=== PATIENT | male | born 1960 | race Caucasian/White ===

== ENCOUNTER 2023-12-28 13:52 | Emergency (ER) | payer BC, OTHER ==
[2023-12-28] MEDS: LIDOCAINE/EPINEPHR/TETRACAINE 5 ML BOTTLE TOPICAL ONE (14:39)
--- NOTE | 2023-12-28 14:39 | ED ---
Fall HPI - General Chief Complaint: Fall Stated Complaint: fall Time Seen by Provider: 12/28/23 13:59 Source: patient, EMS, RN notes reviewed Mode of arrival: EMS Limitations: no limitations - History of Present Illness Initial Comments: 63-year-old male presents emergency department with chief complaint of fall. Patient was checked on by hospice nurse in which patient reported he fell an unknown time. He was noted to have a laceration to his left scapular region patient's reportedly started on hospice yesterday for bladder, liver cancer metastasis. Patient denies any other areas of injury at this time. Denies any chest pain shortness of breath he does have a distended abdomen which is chronic. - Related Data Home Medications Medication Instructions Recorded Confirmed Docusate [Colace] 100 mg PO TID PRN 12/28/23 12/28/23 Esomeprazole Magnesium [NexIUM] 40 mg PO AC-BRKFST 12/28/23 12/28/23 LORazepam [Ativan] 1 mg PO Q8H 12/28/23 12/28/23 Metoclopramide [Reglan] 10 mg PO TID PRN 12/28/23 12/28/23 Sennosides [Senokot] 8.6 mg PO BID PRN 12/28/23 12/28/23 ondansetron HCL [Zofran] 8 mg PO Q8H 12/28/23 12/28/23 oxyCODONE HCL [OxyCONTIN] 40 mg PO Q8H 12/28/23 12/28/23 oxyCODONE HCL [oxyCODONE HCL (IR)] 30 mg PO Q3H PRN 12/28/23 12/28/23 Allergies Allergy/AdvReac Type Severity Reaction Status Date / Time No Known Allergies Allergy Verified 12/28/23 15:50 Review of Systems ROS Statement: Those systems with pertinent positive or pertinent negative responses have been documented in the HPI. ROS Other: All systems not noted in ROS Statement are negative. Past Medical History Additional Past Medical History / Comment(s): CA liver/gullbladder History of Any Multi-Drug Resistant Organisms: Unobtainable Past Surgical History: Unable to Obtain Past Psychological History: Unable to Obtain Smoking Status: Unknown if ever smoked Past Alcohol Use History: Unable to Obtain Past Drug Use History: Unable to Obtain General Exam Limitations: no limitations General appearance: alert, in no apparent distress, cachectic Head exam: Present: atraumatic, normocephalic, normal inspection Eye exam: Present: normal appearance, PERRL, EOMI. Absent: scleral icterus, conjunctival injection, periorbital swelling ENT exam: Present: normal exam, mucous membranes moist Neck exam: Present: normal inspection, full ROM. Absent: tenderness, me ningismus, lymphadenopathy Respiratory exam: Present: normal lung sounds bilaterally. Absent: respiratory distress, wheezes, rales, rhonchi, stridor Cardiovascular Exam: Present: regular rate, normal rhythm, normal heart sounds. Absent: systolic murmur, diastolic murmur, rubs, gallop, clicks GI/Abdominal exam: Present: soft, distended, tenderness, normal bowel sounds. Absent: guarding, rebound, rigid Extremities exam: Present: other (Left posterior scapular region 4 cm irregular laceration) Neurological exam: Present: alert Skin exam: Present: warm, dry, intact, normal color. Absent: rash Course Vital Signs 12/28/23 12/28/23 14:09 15:47 Temperature 98.1 F 97.1 F L Pulse Rate 76 60 Respiratory 20 14 Rate Blood Pressure 101/70 89/60 O2 Sat by Pulse 96 99 Oximetry Procedures - Laceration Laceration #1 Consent Obtained: verbal consent Indication: laceration Site: other (back shoulder) Size (cm): 4 Description: irregular Depth: simple, single layer Anesthetic Used: lidocaine 1%, without epi Pre-repair: wound explored, irrigated extensively Type of Sutures: other (dermabond) Patient Tolerated Procedure: well, no complications Medical Decision Making - Medical Decision Making Was pt. sent in by a medical professional or institution (, PA, DRUM REEL CUTTER, urgent care, hospital, or residential...) When possible be specific @ -No Did you speak to anyone other than the patient for history (EMS, parent, family, police, friend...)? What history was obtained from this source @ -Hospice regarding current status, findings with the patient upon their evaluation Did you review nursing and triage notes (agree or disagree)? Why? @ -I reviewed and agree with nursing and triage notes Were old charts reviewed (outside hosp., previous admission, EMS record, old EKG, old radiological studies, urgent care reports/EKG's, residential records)? Report findings @ -No old charts were reviewed Differential Diagnosis (chest pain, altered mental status, abdominal pain women, abdominal pain men, vaginal bleeding, weakness, fever, dyspnea, syncope, headache, dizziness, GI bleed, back pain, seizure, CVA, palpatations, mental health, musculoskeletal)? @ -Differential Weakness: Cancer, liver failure, hypoglycemia, shock, sepsis, hyponatremia, anemia, infection, HI, ETOH, adverse medicine reaction, overdose, stroke, this is not meant to be an all-inclusive list. EKG interpreted by me (3pts min.). @ -None X-rays interpreted by me (1pt min.). @ -None done CT interpreted by me (1pt min.). @ -CT brain, C-spine showing no acute intracranial hemorrhage, mass effect, cervical fracture U/S interpreted by me (1pt. min.). @ -None done What testing was considered but not performed or refused? (CT, X-rays, U/S, labs)? Why? @ -Ordered x-rays chest, shoulder patient is DNR and felt not needed at this time What meds were considered but not given or refused? Why? @ -None Did you discuss the management of the patient with other professionals (professionals i.e. , PA, DRUM REEL CUTTER, lab, RT, psych nurse, clinical social work aide, printing plate maker, teacher, control officer manager, lining caser)? Give summary @ -Hospice, sound physician for admission for comfort care Was smoking cessation discussed for >3mins.? @ -No Was critical care preformed (if so, how long)? @ -No Were there social determinants of health that impacted care today? How? (Homelessness, low income, unemployed, alcoholism, drug addiction, transportation, low edu. Level, literacy, decrease access to med. care, [facility], rehab)? @ -No Was there de-escalation of care discussed even if they declined (Discuss DNR or withdrawal of care, Hospice)? DNR status @ -No What co-morbidities impacted this encounter? (DM, HTN, Smoking, COPD, CAD, Cancer, CVA, ARF, Chemo, Hep., AIDS, mental health diagnosis, sleep apnea, morbid obesity)? @ -Liver, bladder cancer Was patient admitted / discharged? Hospital course, mention meds given and route, prescriptions, significant lab abnormalities, going to OR and other pertinent info. @ -Admitted for comfort care, GIP, patient has liver, bladder cancer patient recently started on hospice patient has severe hyponatremia, hypochloremia and current liver failure. Patient will admitted for comfort care. Undiagnosed new problem with uncertain prognosis? @ -Yes Drug Therapy requiring intensive monitoring for toxicity (Heparin, Nitro, Insulin, Cardizem)? @ -No Were any procedures done? @ -No Diagnosis/symptom? @ -Hyponatremia, hypochloremia, metastatic cancer Acute, or Chronic, or Acute on Chronic? @ -Acute Uncomplicated (without systemic symptoms) or Complicated (systemic symptoms)? @ -Complicated Side effects of treatment? @ -No Exacerbation, Progression, or Severe Exacerbation? @ -No Poses a threat to life or bodily function? How? (Chest pain, USA, HI, pneumonia, PE, COPD, DKA, ARF, appy, cholecystitis, CVA, Diverticulitis, Homicidal, Suicida l, threat to staff... and all critical care pts) @ -Yes cancer, hyponatremia - Lab Data Result diagrams: 12/28/23 14:33 12/28/23 14:33 Lab Results 12/28/23 12/28/23 12/28/23 Range/Units 14:33 14:33 14:33 WBC 20.8 H (3.8-10.6) k/uL RBC 3.78 L (4.30-5.90) m/uL Hgb 10.4 L (13.0-17.5) gm/dL Hct 30.3 L (39.0-53.0) % MCV 80.2 (80.0-100.0) fL MCH 27.5 (25.0-35.0) pg MCHC 34.3 (31.0-37.0) g/dL RDW 16.3 H (11.5-15.5) % Plt Count 253 (150-450) k/uL MPV 8.3 Neutrophils % (Manual) 92 % Band Neuts % (Manual) 5 % Lymphocytes % (Manual) 1 % Monocytes % (Manual) 2 % Neutrophils # (Manual) 20.10 H (1.3-7.7) k/uL Lymphocytes # (Manual) 0.21 L (1.0-4.8) k/uL Monocytes # (Manual) 0.42 (0-1.0) k/uL Nucleated RBCs 0 (0-0) /100 WBC Manual Slide Review Performed Anisocytosis Slight PT 13.7 H (10.0-12.5) sec INR 1.3 H (<1.2) APTT 25.0 (22.0-30.0) sec Sodium 106 L* (137-145) mmol/L Potassium 4.1 (3.5-5.1) mmol/L Chloride 65 L* (98-107) mmol/L Carbon Dioxide 32 H (22-30) mmol/L Anion Gap 9 mmol/L BUN 44 H (9-20) mg/dL Creatinine 2.06 H (0.66-1.25) mg/dL Est GFR (CKD-EPI)AfAm 39 (>60 ml/min/1.73 sqM) Est GFR (CKD-EPI)NonAf 34 (>60 ml/min/1.73 sqM) Glucose 70 L (74-99) mg/dL Calcium 9.7 (8.4-10.2) mg/dL Magnesium 4.1 H (1.6-2.3) mg/dL Total Bilirubin 1.0 (0.2-1.3) mg/dL AST 708 H (17-59) U/L ALT 146 H (4-49) U/L Alkaline Phosphatase 908 H (38-126) U/L Ammonia (<30) umol/L Total Protein 6.0 L (6.3-8.2) g/dL Albumin 2.9 L (3.5-5.0) g/dL 12/27/ Range/Units 14:33 WBC (3.8-10.6) k/uL RBC (4.30-5.90) m/uL Hgb (13.0-17.5) gm/dL Hct (39.0-53.0) % MCV (80.0-100.0) fL MCH (25.0-35.0) pg MCHC (31.0-37.0) g/dL RDW (11.5-15.5) % Plt Count (150-450) k/uL MPV Neutrophils % (Manual) % Band Neuts % (Manual) % Lymphocytes % (Manual) % Monocytes % (Manual) % Neutrophils # (Manual) (1.3-7.7) k/uL Lymphocytes # (Manual) (1.0-4.8) k/uL Monocytes # (Manual) (0-1.0) k/uL Nucleated RBCs (0-0) /100 WBC Manual Slide Review Anisocytosis PT (10.0-12.5) sec INR (<1.2) APTT (22.0-30.0) sec Sodium (137-145) mmol/L Potassium (3.5-5.1) mmol/L Chloride (98-107) mmol/L Carbon Dioxide (22-30) mmol/L Anion Gap mmol/L BUN (9-20) mg/dL Creatinine (0.66-1.25) mg/dL Est GFR (CKD-EPI)AfAm (>60 ml/min/1.73 sqM) Est GFR (CKD-EPI)NonAf (>60 ml/min/1.73 sqM) Glucose (74-99) mg/dL Calcium (8.4-10.2) mg/dL Magnesium (1.6-2.3) mg/dL Total Bilirubin (0.2-1.3) mg/dL AST (17-59) U/L ALT (4-49) U/L Alkaline Phosphatase (38-126) U/L Ammonia 17 (<30) umol/L Total Protein (6.3-8.2) g/dL Albumin (3.5-5.0) g/dL Disposition Clinical Impression: Fall, Laceration of back, Bladder cancer, Liver cancer, Hyponatremia Disposition: ADMITTED IP TO THIS [facility] Condition: Critical Referrals: None,Stated [Primary Care Provider] - 1-2 days Time of Disposition: 15:43
[2023-12-28 14:52] LABS: Anisocytosis Slight; HCT 30.3 % (39.0-53.0); HGB 10.4 gm/dL (13.0-17.5); MCH 27.5 pg (25.0-35.0); MCHC 34.3 g/dL (31.0-37.0); MCV 80.2 fL (80.0-100.0); Mean Platelet Volume 8.3; Platelet Count 253 k/uL (150-450); RBC 3.78 m/uL (4.30-5.90); RDW 16.3 % (11.5-15.5); WBC 20.8 k/uL (3.8-10.6)
[2023-12-28 15:04] LABS: INR 1.3 (<1.2); Prothrombin Time 13.7 sec (10.0-12.5)
[2023-12-28 15:11] LABS: ALT 146 U/L (4-49); AST 708 U/L (17-59); Albumin 2.9 g/dL (3.5-5.0); Alkaline Phosphatase 908 U/L (38-126); Anion Gap 9 mmol/L; Blood Urea Nitrogen 44 mg/dL (9-20); Calcium 9.7 mg/dL (8.4-10.2); Carbon Dioxide 32 mmol/L (22-30); Glucose 70 mg/dL (74-99); Magnesium 4.1 mg/dL (1.6-2.3); Potassium 4.1 mmol/L (3.5-5.1)
[2023-12-28 15:17] LABS: African American GFR (CKD) 39 (>60 ml/min/1.73 sqM); Non-African American GFR(CKD) 34 (>60 ml/min/1.73 sqM)
[2023-12-28 15:19] LABS: Chloride 65 mmol/L (98-107); Sodium 106 mmol/L (137-145)
[2023-12-28] MEDS: SODIUM CHLORIDE 0.9% 1,000 ML IV SCH (15:41)
--- NOTE | 2023-12-28 15:41 | CT ---
EXAMINATION TYPE: CT brain cspine wo con CT DLP: 1329.3 mGycm, Automated exposure control for dose reduction was used. DATE OF EXAM: 12/28/2023 3:18 PM COMPARISON: None.. CLINICAL INDICATION:Male, 63 years old with history of AMS/fall; AMS, fall, +LOC TECHNIQUE: Brain: Multiple axial CT images of the brain were obtained without IV contrast. Cspine: Axial CT images from the skull base to the inferior aspect of T2 we obtained without intraven ous contrast. Coronal and sagittal reformatted images were also reviewed. FINDINGS: Brain: Extra-axial spaces: No abnormal extra-axial fluid collections. Ventricular system: Within normal limits Cerebral parenchyma: No acute intraparenchymal hemorrhage or mass effect. The roman-white junction is well differentiated. Cerebellum: Unremarkable. Mass effect: No evidence of midline shift. Intracranial vasculature: unremarkable Soft tissues: Minimal left posterior scalp contusion. Calvarium/osseous structures: No depressed skull fracture. Remote fractures of the bilateral lamina p apyracea Paranasal sinuses and mastoid air cells: Mastoid air cells are clear. Minimal mucosal thickening of t he left maxillary and sinus postsurgical changes along the medial wall. Chronic sinusitis changes of the left maxillary sinus. Visualized orbits: Orbital contents are intact. Cervical spine: Fracture: None. Osseous structures: Unremarkable Vertebral alignment: Within normal limits. Spinal canal/Neural Foramina: No evidence of significant spinal canal narrowing. No evidence for sign ificant neural foraminal stenosis. Neck soft tissues: Prevertebral soft tissues are within normal limits. Diffuse anasarca. Other: The airway is patent. The lung apices are clear. Left chest Mediport catheter. Dilated fluid-f illed visualized esophagus. IMPRESSION: 1. No acute intracranial process. 2. No evidence of cervical spine fracture. 3. Minimal left posterior scalp contusion. 4. Diffuse anasarca. 5. Dilated fluid-filled visualized esophagus. Consider further evaluation with esophagram. [facility], , 12/28/2023 3:39 PM
[2023-12-28] MEDS ORDERED: MORPHINE SULFATE 4 MG/ML SYRINGE IV PRN (15:44)
[2023-12-28] MEDS ORDERED: NALOXONE 0.4 MG/ML 1 ML VIAL IV PRN (15:44)
[2023-12-28] MEDS ORDERED: ONDANSETRON 4 MG/2 ML VIAL IVP PRN (15:44)
[2023-12-28 15:48] VITALS: BP 89/60; PULSE 60; RESP 14; TEMP 97.1
[2023-12-28 16:06] LABS: Band Neutrophils % 5 %; Lymphocytes # (M) 0.21 k/uL (1.0-4.8); Monocytes # (M) 0.42 k/uL (0-1.0); Neutrophils % (M) 92 %; Nucleated Red Blood Cells 0 /100 WBC (0-0); Total Cells Counted 100
== END 2023-12-28 16:10 | disposition other institution (70) ==
LOC: EC 13:52 → UNDOADMIN 15:50 → 5NMEDONC 15:50 → EC 16:10
CPT/HCPCS: 36415; 70450; 72125; 80053; 82140; 83735; 85025; 85610; 85730; 99285

== ENCOUNTER 2023-12-28 15:55 | Inpatient (IN) | payer BC, MEDICAID, OTHER ==
[2023-12-28] MEDS ORDERED: LORazepam 0.5 MG TAB PO PRN (16:05)
[2023-12-28] MEDS: MORPHINE SULFATE 2 MG/ML SYRINGE IV PRN (16:27)
--- NOTE | 2023-12-28 16:45 | P.HPIM ---
History of Present Illness H&P Date: 12/28/23 History of Presenting Illness: Patient is a very pleasant 63-year-old male with a past medical history of metastatic liver cancer currently on home hospice. He presented to the emergency department via EMS after he was found on ground by hospice nurse. Chris cook was down on ground for unknown length of time after reports of a fall called EMS for transfer to the hospital for evaluation. On arrival to the emergency department patient was found to have a laceration to left scapular region. Upon arrival to our facility, patient underwent evaluation in the emergency department. Vital signs completed and reviewed. Blood pressure 101/70, heart rate 76, respiratory rate 20, temp 98.1 F, and SpO2 of 96% on room air. CT head was completed negative for acute intracranial process showing minimal left posterior scalp contusion. CT cervical spine negative for cervical spine fracture showing diffuse anasarca and dilated fluid-filled visualized esophagus. Labs completed and reviewed. CBC showing leukocytosis with WBC count of 20.8 and hemoglobin of 10.4. Coagulation profile showing elevated PT of 13.7 and INR of 1.3. BMP showing severe hyponatremia with sodium of 106 and severe metabolic alkalosis with chloride of 65, bicarb of 32, and anion gap of 9 with acute injury with BUN of 44, creatinine of 2.06, and GFR of 34. Blood glucose 70. Magnesium 4.1. Liver profile showing AST of 708, ALT of 146, and alkaline phosphatase of 908. Patient declined all treatment, requesting comfort measures only. Patient reporting pain all over and feeling extremely tired. He was admitted under our services at this time for comfort care. Review of systems: Pertinent positives and negatives as discussed in HPI, a complete review of systems was performed and all other systems are negative. Physical exam: Vital signs reviewed and stable. General: Nontoxic, no distress and appears stated age. Thin, frail cachectic appearance. Derm: Skin warm and dry. Jaundice present. Head: Atraumatic, normocephalic and symmetric. Eyes: EOM's intact, no lid lag, and anicteric sclera Mouth: no lip lesions, mucus membranes moist Cardiovascular: regular rate and rhythm with normal S1S2, no murmur, positive posterior tibial pulses bilaterally, and cap refill < 2 seconds. Lungs: Respirations even, regular, and unlabored on room air. Lungs CTA bilaterally, no rhonchi, no rales, no wheezing, and no accessory muscle usage. Abdominal: Distended cirrhotic abdomen, nontender to palpation, no guarding, no appreciable organomegaly Ext: ROM intact. No gross muscle atrophy, no edema, no contractures Neuro: Speech clear, face symmetrical and CN II-XII grossly intact with no noted focal neuro deficits Psych: Alert and oriented. Lethargic. Assessment and Plan of Care: Metastatic liver cancer Severe hyponatremia Severe metabolic alkalosis Hepatic failure Acute kidney injury Leukocytosis Normocytic anemia -Comfort measures only. -Consult to hospice, discussed case in detail with nurse discharge -Symptomatic care and pain management. -Artificial teardrops to bilateral eyes every 2 hours as needed for dry eyes. -Scopolamine patch. -Order placed for sublingual atropine drops and Robinul for excess secretions. -Compazine 10 mg IVP every 6 hours as needed for nausea and/or vomiting. -OxyContin 40 mg every 8 hours and 30 mg every 3 hours as needed for breakthrough pain. Morphine 4 mg IVP every 4 hours as needed for severe breakthrough pain. -Ativan 1 mg IVP every 4 hours as needed for agitation or acute anxiety. -And reposition patient for comfort/support as needed. Data and imaging reviewed: As stated above in HPI The patient is admitted with an anticipated greater than 2 midnight stay for evaluation of comfort measures secondary to metastatic liver cancer CODE STATUS: DNR/DNI Anticipated discharge date: Pending clinical course Anticipated discharge place: Pending clinical course Patient was seen independently by Nurse Practitioner. This document was prepared using [employer] dictation software. Please allow for errors in information technology manager while rare they do occur. I reviewed the documentation as provided by the SHERRI above, who is the original author of this note. I agree with the documented assessment and plan, with the following changes: none Past Medical History Additional Past Medical History / Comment(s): CA liver/gullbladder History of Any Multi-Drug Resistant Organisms: Unobtainable Past Surgical History: Unable to Obtain Past Psychological History: Unable to Obtain Smoking Status: Unknown if ever smoked Past Alcohol Use History: Unable to Obtain Past Drug Use History: Unable to Obtain Medications and Allergies Home Medications Medication Instructions Recorded Confirmed Type Docusate [Colace] 100 mg PO TID PRN 12/28/23 12/28/23 History Esomeprazole Magnesium [NexIUM] 40 mg PO AC-BRKFST 12/28/23 12/28/23 History LORazepam [Ativan] 1 mg PO Q8H 12/28/23 12/28/23 History Metoclopramide [Reglan] 10 mg PO TID PRN 12/28/23 12/28/23 History Sennosides [Senokot] 8.6 mg PO BID PRN 12/28/23 12/28/23 History ondansetron HCL [Zofran] 8 mg PO Q8H 12/28/23 12/28/23 History oxyCODONE HCL [OxyCONTIN] 40 mg PO Q8H 12/28/23 12/28/23 History oxyCODONE HCL [oxyCODONE HCL (IR)] 30 mg PO Q3H PRN 12/28/23 12/28/23 History Allergies Allergy/AdvReac Type Severity Reaction Status Date / Time No Known Allergies Allergy Verified 12/28/23 15:50 Physical Exam Vitals: Intake and Output 12/28/23 12/28/23 12/28/23 06:59 14:59 22:59 Other: Weight 58.967 kg
[2023-12-28] MEDS ORDERED: SENNOSIDES 8.6 MG TAB PO PRN (16:47)
[2023-12-28] MEDS ORDERED: METOCLOPRAMIDE 10 MG TAB PO PRN (16:47)
[2023-12-28] MEDS ORDERED: DOCUSATE 100 MG CAP PO PRN (16:47)
[2023-12-28] MEDS ORDERED: PROCHLORPERAZINE INJ 10 MG/2 ML VIAL IVP PRN (16:50)
[2023-12-28] MEDS ORDERED: ONDANSETRON 4 MG TAB PO SCH (17:00)
[2023-12-28 17:01] VITALS: PULSE 60
[2023-12-28 17:28] VITALS: BP 88/60
[2023-12-28] MEDS ORDERED: ACETAMINOPHEN TAB 325 MG TAB PO PRN (18:16)
[2023-12-28] MEDS ORDERED: ARTIFICIAL TEARS-HYPROMELLOSE DROPS 15 ML BTL BOTH EYES PRN (18:18)
[2023-12-28] MEDS: oxyCODONE ER 20 MG TAB.ER.12H PO SCH (18:47)
[2023-12-28] MEDS: SCOPOLAMINE 1 MG/72 HR PATCH TRANSDERM SCH (21:23)
[2023-12-29] MEDS: LORazepam 2 MG/ML INJ IV PRN (01:10)
[2023-12-29] MEDS: MORPHINE SULFATE 4 MG/ML SYRINGE IVP PRN (02:00)
[2023-12-29] MEDS: ATROPINE OPHTH SOLN 1% 5ML BTL SUBLINGUAL PRN (02:13)
[2023-12-29] MEDS: MORPHINE SULFATE 2 MG/ML SYRINGE IVP STA (02:44)
[2023-12-29 02:49] VITALS: RESP 21
[2023-12-29] MEDS: PANTOPRAZOLE 40 MG TABLET PO SCH (07:54)
--- NOTE | 2023-12-29 09:57 | P.DS ---
Providers Date of admission: 12/28/23 16:14 Expected date of discharge: 12/29/23 Attending physician: Alex Cuevas Primary care physician: Stated None Hospital Course: Patient . Time of pronounced on 12/29/2023 at 9:12 AM. Discharge Diagnosis: Metastatic liver cancer Severe hyponatremia Severe metabolic alkalosis Hepatic failure Acute kidney injury Leukocytosis Normocytic anemia. Hospital Course: Patient is a very pleasant 63-year-old male with a past medical history of metastatic liver cancer currently on home hospice. He presented to the emergency department via EMS after he was found on ground by hospice nurse. Patient was down on ground for unknown length of time after reports of a fall called EMS for transfer to the hospital for evaluation. On arrival to the emergency department patient was found to have a laceration to left scapular region. Upon arrival to our facility, patient underwent evaluation in the emergency department. Vital signs completed and reviewed. Blood pressure 101/70, heart rate 76, respiratory rate 20, temp 98.1 F, and SpO2 of 96% on room air. CT head was completed negative for acute intracranial process showing minimal left posterior scalp contusion. CT cervical spine negative for cervical spine fracture showing diffuse anasarca and dilated fluid-filled visualized esophagus. Labs completed and reviewed. CBC showing leukocytosis with WBC count of 20.8 and hemoglobin of 10.4. Coagulation profile showing elevated PT of 13.7 and INR of 1.3. BMP showing severe hyponatremia with sodium of 106 and severe metabolic alkalosis with chloride of 65, bicarb of 32, and anion gap of 9 with acute injury with BUN of 44, creatinine of 2.06, and GFR of 34. Blood glucose 70. Magnesium 4.1. Liver profile showing AST of 708, ALT of 146, and alkaline phosphatase of 908. Patient declined all treatment, requesting comfort measures only. Patient was reporting pain all over and feeling extremely tired. He was admitted under our services for comfort care consultation to [facility]. Time of was pronounced on 12/29/2023 at 9:12 AM. Patient . Time of pronounced on 12/29/2023 at 9:12 AM. I reviewed the documentation as provided by the SHERRI above, who is the original author of this note. I agree with the documented assessment and plan, with the following changes: none Plan - Discharge Summary New Discharge Prescriptions: No Action oxyCODONE HCL [oxyCODONE HCL (IR)] 30 mg PO Q3H PRN PRN Reason: Pain Esomeprazole Magnesium [NexIUM] 40 mg PO AC-BRKFST ondansetron HCL [Zofran] 8 mg PO Q8H Sennosides [Senokot] 8.6 mg PO BID PRN PRN Reason: constipation oxyCODONE HCL [OxyCONTIN] 40 mg PO Q8H Metoclopramide [Reglan] 10 mg PO TID PRN PRN Reason: nausea LORazepam [Ativan] 1 mg PO Q8H Docusate [Colace] 100 mg PO TID PRN PRN Reason: Constipation Discharge Medication List Docusate [Colace] 100 mg PO TID PRN 12/28/23 [History] Esomeprazole Magnesium [NexIUM] 40 mg PO AC-BRKFST 12/28/23 [History] LORazepam [Ativan] 1 mg PO Q8H 12/28/23 [History] Metoclopramide [Reglan] 10 mg PO TID PRN 12/28/23 [History] Sennosides [Senokot] 8.6 mg PO BID PRN 12/28/23 [History] ondansetron HCL [Zofran] 8 mg PO Q8H 12/28/23 [History] oxyCODONE HCL [OxyCONTIN] 40 mg PO Q8H 12/28/23 [History] oxyCODONE HCL [oxyCODONE HCL (IR)] 30 mg PO Q3H PRN 12/28/23 [History] Follow up Appointment(s)/Referral(s): None,Stated [Primary Care Provider] - 1 Week Discharge Disposition: - Preliminary Cause of Preliminary Cause of : metastatic liver cancer
--- NOTE | 2023-12-29 17:24 | P.PN ---
Subjective Progress Note Date: 12/29/23 Hospital Course: Patient is a very pleasant 63-year-old male with a past medical history of metastatic liver cancer currently on home hospice. He presented to the emergency department via EMS after he was found on ground by hospice nurse. Patient was down on ground for unknown length of time after reports of a fall called EMS for transfer to the hospital for evaluation. On arrival to the emergency department patient was found to have a laceration to left scapular region. Upon arrival to our facility, patient underwent evaluation in the emergency department. Vital signs completed and reviewed. Blood pressure 101/70, heart rate 76, respiratory rate 20, temp 98.1 F, and SpO2 of 96% on room air. CT head was completed negative for acute intracranial process showing minimal left posterior scalp contusion. CT cervical spine negative for cervical spine fracture showing diffuse anasarca and dilated fluid-filled visualized esophagus. Labs completed and reviewed. CBC showing leukocytosis with WBC count of 20.8 and hemoglobin of 10.4. Coagulation profile showing elevated PT of 13.7 and INR of 1.3. BMP showing severe hyponatremia with sodium of 106 and severe metabolic alkalosis with chloride of 65, bicarb of 32, and anion gap of 9 with acute injury with BUN of 44, creatinine of 2.06, and GFR of 34. Blood glucose 70. Magnesium 4.1. Liver profile showing AST of 708, ALT of 146, and alkaline phosphatase of 908. Patient declined all treatment, requesting comfort measures only. Patient reporting pain all over and feeling extremely tired. He was admitted under our services at this time for comfort care. Physical exam: General: Thin, frail cachectic appearance. Derm: Skin warm and dry. Jaundice present. Head: Atraumatic, normocephalic and symmetric. Eyes: no lid lag, and anicteric sclera Mouth: no lip lesions, mucus membranes moist Cardiovascular: regular rate and rhythm with normal S1S2, no murmur, positive posterior tibial pulses bilaterally, and cap refill < 2 seconds. Lungs: Respirations shallow Abdominal: Distended cirrhotic abdomen, nontender to palpation, no guarding Ext: No gross muscle atrophy, no edema, no contractures Neuro: Lethargic Psych: Lethargic. Assessment and Plan of Care: Metastatic liver cancer Severe hyponatremia Severe metabolic alkalosis Hepatic failure Acute kidney injury Leukocytosis Normocytic anemia -Comfort measures only. 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 -Artificial teardrops to bilateral eyes every 2 hours as needed for dry eyes. -Scopolamine patch. -Order placed for sublingual atropine drops and Robinul for excess secretions. -Compazine 10 mg IVP every 6 hours as needed for nausea and/or vomiting. -OxyContin 40 mg every 8 hours and 30 mg every 3 hours as needed for breakthrough pain. Morphine 4 mg IVP every 4 hours as needed for severe breakthrough pain. -Ativan 1 mg IVP every 4 hours as needed for agitation or acute anxiety. -And reposition patient for comfort/support as needed. CODE STATUS: DNR/DNI Patient was seen independently by Nurse Practitioner. This document was prepared using [employer] dictation software. Please allow for errors in finishing inspector while rare they do occur. I reviewed the documentation as provided by the SHERRI above, who is the original author of this note. I agree with the documented assessment and plan, with the following changes: none Objective - Vital Signs Vital signs: Vital Signs Temp Pulse 60 12/28/23 16:37 Resp 21 12/29/23 02:40 BP 88/60 12/28/23 17:28 Pulse Ox 96 12/28/23 16:37 FiO2 Intake & Output 12/28/23 12/29/23 12/29/23 18:59 06:59 18:59 Intake Total 0 Output Total 0 200 Balance 0 -200 Weight 58.967 kg Intake: Oral 0 Output: Urine 0 200
== END 2023-12-29 11:01 | disposition expired | DRG 951 ==
LOC: EC 15:55 → 5NMEDONC 16:14
PROVIDERS: ADMIT Student in an Organized Health Care Education/Training Program; ATTEND Student in an Organized Health Care Education/Training Program
DX: Z51.5 Encounter for palliative care (principal); C22.9 Malignant neoplasm of liver, not specified as primary or secondary; C79.9 Secondary malignant neoplasm of unspecified site; E87.1 Hypo-osmolality and hyponatremia; E87.3 Alkalosis; N17.9 Acute kidney failure, unspecified; D64.9 Anemia, unspecified; K72.90 Hepatic failure, unspecified without coma; Z66 Do not resuscitate; S41.012A Laceration without foreign body of left shoulder, initial encounter; W18.30XA Fall on same level, unspecified, initial encounter